=== PATIENT | female | born 1990 | race Caucasian/White ===

== ENCOUNTER 2017-04-30 20:55 | Emergency (ER) | payer BC ==
[2017-04-30 23:33] VITALS: BP 92/46
[2017-04-30] MEDS ORDERED: cloNIDine TAB* 0.1 MG PO SCH (23:45)
[2017-04-30] MEDS ORDERED: LORazepam INJ* 2 MG/ML 1 ML VIAL IV ONE (23:56)
[2017-05-01] MEDS ORDERED: LORazepam TAB(*) 1 MG PO ONE (00:06)
--- NOTE | 2017-05-01 12:05 | ED ---
Lynda Zhong Thomas, scribed for William De Luna MD on 04/30/17 at 2216 . Substance Abuse/Use - HPI Summary HPI Summary: This patient is a 26 year old F presenting to [facility] requesting Heroin detox. She has been snorting heroin daily for two years. She reports that she last used heroin this morning. Patient reports withdrawal symptoms. She is tearful. She requests a prescription for clonidine and a benzodiazepine. She has had both before during her last Heroin detox in 2012. She requests not to be put on suboxone. She is not currently on suboxone. - History Of Current Complaint Chief Complaint: EDDetoxRequest Stated Complaint: DETOX Time Seen by Provider: 04/30/17 22:00 Hx Obtained From: Patient Onset/Duration of Drug/ETOH Abuse: Years - 2 years Ingestion History: Type/Name Of Drug - Heroin Timing Of Abuse: Daily Character: Other - Tearful Aggravating Factor(s): Nothing, Medication Non-compliance Associated Signs And Symptoms: Other: - Withdrawl symptoms Related Hx: Drug/Alcohol Last Used @ - this morning - Allergies/Home Medications Allergies/Adverse Reactions: Allergies Allergy/AdvReac Type Severity Reaction Status Date / Time No Known Allergies Allergy Verified 04/30/17 21:09 PMH/Surg Hx/FS Hx/Imm Hx Previously Healthy: No Endocrine/Hematology History: Denies: Hx Diabetes Cardiovascular History: Denies: Hx Hypertension Sensory History: Denies: Hx Legally Blind EENT History: Denies: Hx Deafness Infectious Disease History: No Infectious Disease History: Denies: Traveled Outside the [place] in Last 30 Days - Family History Known Family History: Positive: Other - Breast cancer - Social History Occupation: Employed Full-time Alcohol Use: None Hx Substance Use: Yes Substance Use Type: Reports: Cocaine, Heroin Review of Systems Negative: Fever Positive: Other - She is tearful All Other Systems Reviewed And Are Negative: Yes Physical Exam - Summary Physical Exam Summary: Appearance: The patient is well-nourished in no acute distress and in no acute pain. Skin: The skin is warm and dry and skin color reflects adequate perfusion. No piloerection. HEENT: The head is normocephalic and atraumatic. The pupils are 3-4mm and reactive. The conjunctivae are clear and without drainage. Nares are patent and with drainage. Mouth reveals moist mucous membranes and the throat is without erythema and exudate. The external ears are intact. The ear canals are patent and without drainage. The tympanic membranes are intact. Neck: the neck is supple with full range of motion and non-tender. There are no carotid bruits. There is no neck vein distension. Respiratory: Chest is non-tender. Lungs are clear to auscultation and breath sounds are symmetrical and equal. Cardiovascular: Heart is regular rate and rhythm. There is no murmur or rub auscultated. There is no peripheral edema and pulses are symmetrical and equal. Abdomen: The abdomen is soft and non-tender. There are normal bowel sounds heard in all four quadrants and there is no organomegaly palpated. Musculoskeletal: There is no back tenderness noted. Extremities are non-tender with full range of motion. There is good capillary refill. There is no peripheral edema or calf tenderness elicited. Neurological: Patient is alert and oriented to person, place and time. The patient has symmetrical motor strength in all four extremities. Cranial nerves are grossly intact. Deep tendon reflexes are symmetrical and equal in all four extremities. Psychiatric: The patient has an appropriate affect and does not exhibit any anxiety or depression. She is tearful. Triage Information Reviewed: Yes Vital Signs On Initial Exam: Initial Vitals Temp Pulse Resp BP Pulse Ox 98.8 F 68 16 129/73 100 04/30/17 21:09 04/30/17 21:09 04/30/17 21:09 04/30/17 21:09 04/30/17 21:09 Vital Signs Reviewed: Yes Diagnostics - Vital Signs Vital Signs Temp Pulse Resp BP Pulse Ox 04/30/17 21:09 98.8 F 68 16 129/73 100 - Laboratory Lab Statement: Any lab studies that have been ordered have been reviewed, and results considered in the medical decision making process. Course/Dx - Course Course Of Treatment: Ms. Rice presented wanting to get off heroin. She can't miss work and so wants outpatient treaqtment. She initially didn't want suboxone as she doesn't want to take it permanently. She was, however, open to the possibility of using suboxone as a bridge and weaning off that also. Dr. Rodriguez happened to be on for the hospitalists and was willing to take her on under his waiveer and I will bridge her until Tuesday with ativan and clonidine. - Diagnoses Provider Diagnoses: Narcotic abuse - Physician Notifications Discussed Care Of Patient With: Mario Rodriguez Time Discussed With Above Provider: 23:12 Instructed by Provider To: Other - I consulted Dr. Rodriguez, hospitalist, who will consult on the patient. He came to the ED to evaluate the patient. Discharge - Discharge Plan Condition: Stable Disposition: HOME Prescriptions: cloNIDine TAB* [Catapres 0.1 MG TAB*] 0.1 mg PO TID #9 tab LORazepam TAB(*) [Ativan TAB(*)] 1 mg PO Q6H PRN #10 tab MDD 4 PRN Reason: Pain Patient Education Materials: Narcotic Abuse (ED) Referrals: Mario Rodriguez MD [Medical Doctor] - 2 Days Additional Instructions: Follow up with Dr. Rodriguez on Tuesday, May 02. The documentation as recorded by the Lynda carmona Thomas accurately reflects the service I personally performed and the decisions made by me, William De Luna MD.
== END 2017-05-01 00:54 | disposition home or self-care (01) ==
LOC: ED 20:55
DX: F11.10 Opioid abuse, uncomplicated (principal)
CPT/HCPCS: 96374; 99282